=== PATIENT | male | born 1995 | race Caucasian/White ===

== ENCOUNTER 2019-02-28 17:08 | Emergency (ER) | payer OTHER ==
[2019-02-28 17:39] LABS: ABS Basophils 0.1 10^3/ul (0-0.2); ABS Eosinophils 0.5 10^3/ul (0-0.6); ABS Lymphocytes 1.4 10^3/ul (1.0-4.8); ABS Neutrophils 5.9 10^3/ul (1.5-7.7); Eosinophil % 6.1 %; Hematocrit 42 % (42-52); Hemoglobin 14.6 g/dL (14.0-18.0); Lymphocyte % 15.8 %; Mean Corpuscular HGB Conc 35 g/dL (31-36); Mean Corpuscular Hemoglobin 31 pg (27-31); Mean Corpuscular Volume 89 fL (80-94); Platelet Count 141 10^3/uL (150-450); Red Blood Count 4.76 10^6 /uL (4.18-5.48); Red Cell Distribution Width 13 % (10-15); White Blood Count 8.9 10^3/uL (3.5-10.8)
[2019-02-28 17:55] LABS: Albumin 4.7 g/dL (3.2-5.2); Calcium 9.7 mg/dL (8.6-10.3); EGFR African American 118.3 (>60); EGFR Non-African American 97.8 (>60); Globulin 2.3 g/dL (2-4); Magnesium 1.8 mg/dL (1.9-2.7); Potassium 3.6 mmol/L (3.5-5.0)
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
[2019-02-28 19:30] VITALS: BP 117/72
== END 2019-02-28 19:29 | disposition home or self-care (01) ==
LOC: ED 17:08
DX: T54.2X1A Toxic effect of corrosive acids and acid-like substances, accidental (unintentional), initial encounter (principal); T22.511A Corrosion of first degree of right forearm, initial encounter; Y93.89 Activity, other specified; Y92.89 Other specified places as the place of occurrence of the external cause; Y99.0 Civilian activity done for income or pay; I49.9 Cardiac arrhythmia, unspecified
CPT/HCPCS: 36415; 80053; 83735; 85025; 93005; 99282